=== PATIENT | female | born 1995 | race Caucasian/White ===

== ENCOUNTER 2016-11-23 18:25 | Emergency (ER) | payer MEDICAID ==
[~2016-11-23] VITALS: Ht 154.9 cm; Wt 61.5 kg
[2016-11-23 18:26] VITALS: BP 112/68; PULSE 113; RESP 16; TEMP 98.2; O2SAT 98
[2016-11-23] MEDS ORDERED: PREN29TA PO (19:04)
--- NOTE | 2016-11-23 19:11 | PD ---
HPI Chief Complaint: GI Complaint Time Seen by Provider: 19:07 Travel History International Travel<30 days: No Contact w/Intl Traveler<30days: No Traveled to known affect area: No History of Present Illness HPI Patient comes in complaining of constipation ongoing for approximately a month. Patient states she is approximately 25 weeks and had similar issues with her previous . Patient is A0. Patient reports she began having nausea and vomiting yesterday approximately 3 episodes of vomiting. Patient reports vomiting is nonbilious and nonbloody. Denies any blood in stool. Denies any chest pain, fevers, shortness of breath, or headaches. Patient tried [id number] MiraLAX with minimal improvement of symptoms. Patient complaining of cramping pain and pressure in her abdomen. Patient reports she continues to feel movement. PFSH Past Medical History Gastrointestinal Disorders: Yes (frequent constipation w/ unknown cause) ?: LMP: 06/01/16 Social History Alcohol Use: No Tobacco Use: No Substance Use: No Allergies-Medications (Allergen,Severity, Reaction): Coded Allergies: No Known Allergies (Unverified , 11/23/16) Reported Meds & Prescriptions Reported Meds & Active Scripts Active Keflex (Cephalexin) 500 Mg Cap 500 Mg PO Q8H Zofran Odt (Ondansetron Odt) 4 Mg Tab 4 Mg SL Q6HR PRN Reported Plus Iron 29-1 mg ( Vit-Iron Carbonyl) 1 Tab Tab 1 Tab PO DAILY Review of Systems Except as stated in HPI: all other systems reviewed are Neg Physical Exam Narrative GENERAL: Well-developed, well nourished, in no acute distress, and non-ill appearing. SKIN: Focused skin assessment warm and dry. HEAD: Atraumatic. Normocephalic. EYES: Pupils equal and round. EOMI. No scleral icterus. No injection or drainage. ENT: No nasal bleeding or discharge. Mucous membranes pink and moist. NECK: Trachea midline. No JVD. Supple. No nuclear rigidity. CARDIOVASCULAR: Regular rate and rhythm. No murmur appreciated. RESPIRATORY: No accessory muscle use. No respiratory distress. Clear to auscultation. Breath sounds equal bilaterally. GASTROINTESTINAL: Gravid uterus, minimal tenderness left lower quadrant, abdomen soft. Hepatic and splenic margins not palpable. Normal bowel sounds 4. No pulsatile mass. No guarding. MUSCULOSKELETAL: No obvious deformities. No clubbing. No cyanosis. No edema. Full range of motion. NEUROLOGICAL: Awake and alert. No obvious cranial nerve deficits. Motor grossly within normal limits. Normal speech. PSYCHIATRIC: Appropriate mood and affect; insight and judgment normal. Data Data Last Documented VS Vital Signs Date Time Temp Pulse Resp B/P Pulse Ox O2 Delivery O2 Flow Rate FiO2 11/23/16 19:59 85 18 121/77 99 Room Air 11/23/16 18:26 98.2 Orders Urinalysis - C+S If Indicated (11/23/16 19:03) Ecg Monitoring (11/23/16 19:03) Oximetry (11/23/16 19:03) Sodium Chloride 0.9% Flush (Ns Flush) (11/23/16 19:15) ^ Straight Catheter (11/23/16 19:03) Mineral Oil Enema (Fleet Mineral Oil Jaimie (11/23/16 19:15) Ondansetron Odt (Zofran Odt) (11/23/16 19:15) Heart Tones (11/23/16 19:03) Acetaminophen (Tylenol) (11/23/16 19:45) Urine Culture (11/23/16 19:20) Fleets Enema (Adult) (Fleets Enema (Adul (11/23/16 20:45) Labs Laboratory Tests Test 11/23/16 19:20 Urine Color YELLOW Urine Turbidity HAZY Urine pH 6.0 Urine Specific [place] 1.021 Urine Protein TRACE mg/dL Urine Glucose (UA) NEG mg/dL Urine Ketones 150 mg/dL Urine Occult Blood MOD Urine Nitrite POS Urine Bilirubin NEG Urine Urobilinogen 2.0 MG/DL Urine Leukocyte Esterase SMALL Urine RBC 26 /hpf Urine WBC 10 /hpf Urine Bacteria MANY /hpf Urine Hyaline Casts 1 /lpf Urine Mucus MOD /lpf Microscopic Urinalysis Comment CULTURE INDICATED MDM Medical Decision Making Medical Screen Exam Complete: Yes Emergency Medical Condition: Yes Differential Diagnosis Constipation, UTI, febrile infection, other Narrative Course Patient in no obvious distress upon re-evaluation. After patient had a mineral oil enema followed by fleets enema patient had a large successful bowel movement with improvement of her symptoms. All pertinent laboratory result(s) discussed with patient. Discussed patient with Dr. Alvares, who saw and evaluated the patient and is in agreement with plan of care and disposition. Any questions/concerns in reference to patient diagnosis/condition discussed and clarified prior to patient's discharge. Reinforced sheer importance of close follow up with patient's primary physician or primary care clinic. Instructed patient to return to ED immediately, if symptoms return/worsen. Pt showed understanding of above instructions. Further instructions and recommendations were detailed in discharge paperwork. Pt ambulated without difficulty out of ED at discharge. Diagnosis Primary Impression: Constipation during Qualified Code: O99.619 - Constipation during , unspecified trimester Additional Impression: UTI (urinary tract infection) during Qualified Code: O23.40 - UTI (urinary tract infection) during , unspecified trimester Patient Instructions: Constipation (ED), General Instructions, Urinary Tract Infection in Women (ED) Additional Instructions: Follow-up with your stage driver this week for reevaluation. Take all medication as prescribed. Drink plenty of non-caffeinated and nonalcoholic fluids. Eat prunes regularly to help promote bowel movements. Use [id number] MiraLAX as needed for constipation. Follow instructions on the packaging. Return to the emergency department if symptoms get worse. Med/Other Pt SpecificInfo: Prescription(s) given Scripts Cephalexin (Keflex)500 Mg [id number] Mg PO Q8H #30 CAP Ref 0 Prov:Margarita De MD 11/23/16 Ondansetron Odt (Zofran Odt)4 Mg Tab4 Mg SL Q6HR PRN (Nausea/Vomiting) #12 TAB Ref 0 Prov:Margarita De MD 11/23/16 Disposition: 01 DISCHARGE HOME Condition: Stable Benitez Rosales November 23, 2016 19:11
[2016-11-23] MEDS ORDERED: MINERAL OIL ENEMA 118 ML BTL RECTAL ONE (19:15)
[2016-11-23] MEDS ORDERED: ONDANSETRON ODT 4 MG TAB PO ONE (19:15)
[2016-11-23] MEDS ORDERED: SODIUM CHLORIDE 0.9% FLUSH 10 ML FLUSH IV FLUSH PRN (19:15)
[2016-11-23 19:31] VITALS: O2SAT 98
[2016-11-23] MEDS ORDERED: ACETAMINOPHEN 500 MG CPLT PO ONE (19:45)
[2016-11-23 19:50] LABS: BACTERIA, URINE MANY /hpf; BLOOD, URINE MOD (NEG); COMMENT (UR) CULTURE INDICATED; CULTURE IF INDICATED CULTURE INDICATED; GLUCOSE,URINE NEG (NEG); HYALINE CAST, URINE 1 /lpf (RARE); KETONE, URINE 150 mg/dL (NEG); MUCUS URINE MOD /lpf (OCC); URINE COLOR YELLOW (YELLW/STRAW)
[2016-11-23 19:51] VITALS: PULSE 118
[2016-11-23 19:51] LABS: NITRITE,URINE POS (NEG)
[2016-11-23 19:59] VITALS: BP 121/77; PULSE 85; RESP 18; O2SAT 99
[2016-11-23] MEDS ORDERED: SOD PHOSPHATE/SOD BIPHOSPHATE (ADULT) ENEMA 133ML RECTAL ONE (20:45)
--- NOTE | 2016-11-23 21:00 | PD ---
Data Data Last Documented VS Vital Signs Date Time Temp Pulse Resp B/P Pulse Ox O2 Delivery O2 Flow Rate FiO2 11/23/16 19:59 85 18 121/77 99 Room Air 11/23/16 18:26 98.2 Orders Urinalysis - C+S If Indicated (11/23/16 19:03) Ecg Monitoring (11/23/16 19:03) Oximetry (11/23/16 19:03) Sodium Chloride 0.9% Flush (Ns Flush) (11/23/16 19:15) ^ Straight Catheter (11/23/16 19:03) Mineral Oil Enema (Fleet Mineral Oil Jaimie (11/23/16 19:15) Ondansetron Odt (Zofran Odt) (11/23/16 19:15) Heart Tones (11/23/16 19:03) Acetaminophen (Tylenol) (11/23/16 19:45) Urine Culture (11/23/16 19:20) Fleets Enema (Adult) (Fleets Enema (Adul (11/23/16 20:45) Labs Laboratory Tests Test 11/23/16 19:20 Urine Color YELLOW Urine Turbidity HAZY Urine pH 6.0 Urine Specific [place] 1.021 Urine Protein TRACE mg/dL Urine Glucose (UA) NEG mg/dL Urine Ketones 150 mg/dL Urine Occult Blood MOD Urine Nitrite POS Urine Bilirubin NEG Urine Urobilinogen 2.0 MG/DL Urine Leukocyte Esterase SMALL Urine RBC 26 /hpf Urine WBC 10 /hpf Urine Bacteria MANY /hpf Urine Hyaline Casts 1 /lpf Urine Mucus MOD /lpf Microscopic Urinalysis Comment CULTURE INDICATED MDM Supervised Visit with DANIEL: Yes Narrative Course I, Dr. De, have reviewed the advance practice practioner's documentation and am in agreement, met with the patient face to face, made the diagnosis, and the medical decision making was done by me. *My assessment and Findings: 20-year-old female approximate 25 weeks' gestational age here with complaint of constipation 3 weeks with some associated nausea and vomiting. She is still passing flatus. She's having some scant small bowel movements. Patient complains of pain and fullness in the rectum. Her abdominal examination is benign but on rectal examination patient has large amount of stool within the rectal vault. I unfortunately was unable to digitally disimpact her. Patient has a benign abdominal examination and my suspicion for obstruction is exceedingly low. She's had a history of severe constipation with previous . Patient was given an enema, and with BM will be discharged home with bowel regimen. Margarita De MD November 23, 2016 21:00
[2016-11-23] MEDS ORDERED: ZOFR4TAB3 SL (21:21)
[2016-11-23] MEDS ORDERED: CEPH-460 PO (21:21)
== END 2016-11-23 21:45 | disposition home or self-care (01) ==
LOC: NEPE 18:25
DX: O99.612 Diseases of the digestive system complicating pregnancy, second trimester (principal); O23.42 Unspecified infection of urinary tract in pregnancy, second trimester; O21.9 Vomiting of pregnancy, unspecified; R11.2 Nausea with vomiting, unspecified; B96.20 Unspecified Escherichia coli [E. coli] as the cause of diseases classified elsewhere; Z3A.25 25 weeks gestation of pregnancy
CPT/HCPCS: 81001; 87077; 87086; 87186; 99284; P9612

== ENCOUNTER 2017-06-08 13:04 | Emergency (ER) | payer MEDICAID ==
[~2017-06-08] VITALS: Ht 154.9 cm; Wt 61.5 kg
[~2017-06-08 13:04] MED LIST: CEPH-460 PO; PREN29TA PO; ZOFR4TAB3 SL
[2017-06-08 13:06] VITALS: BP 119/74; PULSE 91; RESP 16; TEMP 98.7; O2SAT 98
--- NOTE | 2017-06-08 14:01 | PD ---
HPI Chief Complaint: Complaint Time Seen by Provider: 13:52 Travel History International Travel<30 days: No Contact w/Intl Traveler<30days: No Traveled to known affect area: No History of Present Illness HPI The patient was seen and examined in the presence of the nurse. This patient complains of dysuria and urinary frequency. She denies fever or flank pain or injury. Symptoms severity is mild to moderate. Duration 2 days. PFSH Past Medical History Medical History: Denies Significant Hx Gastrointestinal Disorders: Yes (frequent constipation w/ unknown cause) Tetanus Vaccination: Unknown Influenza Vaccination: No ?: LMP: 04/07/17 Past Surgical History Section: Yes Social History Alcohol Use: No Tobacco Use: No Substance Use: No Allergies-Medications (Allergen,Severity, Reaction): Coded Allergies: No Known Allergies (Unverified Adverse Reaction, Unknown, 06/08/17) Reported Meds & Prescriptions Reported Meds & Active Scripts Active Macrobid (Nitrofurantoin Monohydrate Macrocrystals) 100 Mg Capsule 100 Mg PO BID Keflex (Cephalexin) 500 Mg Cap 500 Mg PO Q8H Zofran Odt (Ondansetron Odt) 4 Mg Tab 4 Mg SL Q6HR PRN Reported Plus Iron 29-1 mg ( Vit-Iron Carbonyl) 1 Tab Tab 1 Tab PO DAILY Review of Systems General / Constitutional: No: Fever HENT: No: Headaches Cardiovascular: No: Chest Pain or Discomfort Physical Exam Narrative SKIN: Focused skin assessment reveals no rash or ulcers. Skin is warm and dry. Palpation shows no induration or nodules. GASTROINTESTINAL: Abdomen soft, non-tender, nondistended. Positive bowel sounds. No hepato-splenomegaly, or palpable masses. No guarding. Back: No midline or CVA tenderness Data Data Last Documented VS Vital Signs Date Time Temp Pulse Resp B/P (MAP) Pulse Ox O2 Delivery O2 Flow Rate FiO2 06/08/17 13:38 18 06/08/17 13:06 98.7 91 119/74 (89) 98 Orders Orders Urinalysis - C+S If Indicated (06/08/17 13:56) Urine Culture (06/08/17 14:20) Labs Laboratory Tests Test 06/08/17 14:20 Urine Color YELLOW Urine Turbidity HAZY Urine pH 7.0 Urine Specific [place] 1.023 Urine Protein TRACE mg/dL Urine Glucose (UA) NEG mg/dL Urine Ketones NEG mg/dL Urine Occult Blood NEG Urine Nitrite NEG Urine Bilirubin NEG Urine Urobilinogen 2.0 MG/DL Urine Leukocyte Esterase MOD Urine RBC 2 /hpf Urine WBC 11 /hpf Urine Squamous Epithelial Cells 4 /hpf Urine Transitional Epithelial Cells <1 /hpf Urine Bacteria RARE /hpf Urine Mucus MANY /lpf Microscopic Urinalysis Comment CULTURE INDICATED MDM Medical Decision Making Medical Screen Exam Complete: Yes Emergency Medical Condition: Yes Medical Record Reviewed: Yes Differential Diagnosis Cystitis, pyelonephritis, UTI Narrative Course I have reviewed the patient's electronic medical record. Urinalysis shows some minor findings consistent with infection will be cultured. Macrobid prescribed Diagnosis Primary Impression: Cystitis Additional Instructions: The patient was advised to follow up with their physician and return if they worsen. Med/Other Pt SpecificInfo: Prescription(s) given Scripts Nitrofurantoin Monohydrate Macrocrystals (Macrobid) 100 Mg Capsule 100 MG PO BID for Infection, #10 CAP 0 Refills Prov: Jm Cespedes MD 06/08/17 Disposition: DISCHARGE HOME Condition: Stable Jm Cespedes MD Jun 08, 2017 14:01
[2017-06-08 14:31] LABS: BACTERIA, URINE RARE /hpf; BLOOD, URINE NEG (NEG); GLUCOSE,URINE NEG (NEG); KETONE, URINE NEG (NEG); MUCUS URINE MANY /lpf (OCC); NITRITE,URINE NEG (NEG); SQUAMOUS EPITHELIAL CELL URINE 4 /hpf (0-5); TRANSITIONAL EPI CELLS, URINE <1 /hpf; URINE COLOR YELLOW (YELLW/STRAW)
[2017-06-08 14:33] LABS: COMMENT (UR) CULTURE INDICATED; CULTURE IF INDICATED CULTURE INDICATED
[2017-06-08] MEDS ORDERED: MACR100C2 PO (16:13)
== END 2017-06-08 16:48 | disposition home or self-care (01) ==
LOC: NEPD 13:04
DX: N30.90 Cystitis, unspecified without hematuria (principal); B95.7 Other staphylococcus as the cause of diseases classified elsewhere; Z79.899 Other long term (current) drug therapy
CPT/HCPCS: 81001; 86403; 87077; 87086; 87186; 99283

== ENCOUNTER 2017-08-30 11:51 | Emergency (ER) | payer MEDICAID ==
[~2017-08-30] VITALS: Ht 154.9 cm; Wt 60.0 kg
[~2017-08-30 11:51] MED LIST changes: +MACR100C2 PO
[2017-08-30 11:54] VITALS: BP 112/60; PULSE 125; RESP 16; TEMP 99; O2SAT 97
--- NOTE | 2017-08-30 12:43 | PD ---
HPI Chief Complaint: Cold / Flu Symptoms Time Seen by Provider: 12:39 Travel History International Travel<30 days: No Contact w/Intl Traveler<30days: No Traveled to known affect area: No History of Present Illness HPI Patient has had 2 day history of nonproductive cough, sore throat, some runny nose as well as body aches. Patient is to about 22 weeks and is concerned about it so she came here to be evaluated. However patient was sent from OB to the ER for clearance. Patient denies any alleviating or aggravating factors. Patient also denies any associated factors such as fever headache chest pain nausea vomiting rash or diarrhea. No known drug allergies No significant past medical history Past surgical history significant for only PFSH Past Medical History Gastrointestinal Disorders: Yes (frequent constipation w/ unknown cause) ?: LMP: 04/07/18 Past Surgical History Section: Yes Social History Alcohol Use: No Tobacco Use: No Substance Use: No Allergies-Medications (Allergen,Severity, Reaction): Coded Allergies: No Known Allergies (Unverified Adverse Reaction, Unknown, 08/30/17) Reported Meds & Prescriptions Reported Meds & Active Scripts Active Macrobid (Nitrofurantoin Monohydrate Macrocrystals) 100 Mg Capsule 100 Mg PO BID Keflex (Cephalexin) 500 Mg Cap 500 Mg PO Q8H Zofran Odt (Ondansetron Odt) 4 Mg Tab 4 Mg SL Q6HR PRN Reported Plus Iron 29-1 mg ( Vit-Iron Carbonyl) 1 Tab Tab 1 Tab PO DAILY Review of Systems General / Constitutional: No: Fever Eyes: No: Visual changes HENT: Positive: Sore Throat Cardiovascular: No: Chest Pain or Discomfort Respiratory: No: Shortness of Breath Gastrointestinal: No: Abdominal Pain Genitourinary: No: Dysuria Musculoskeletal: No: Pain Skin: No Rash Neurologic: No: Weakness Psychiatric: No: Depression Endocrine: No: Polydipsia Hematologic/Lymphatic: No: Easy Bruising Physical Exam Narrative GENERAL: SKIN: Warm and dry. HEAD: Atraumatic. Normocephalic. EYES: Pupils equal and round. No scleral icterus. No injection or drainage. ENT: No nasal bleeding or discharge. Mucous membranes pink and moist. NECK: Trachea midline. No JVD. CARDIOVASCULAR: Regular rate and rhythm. RESPIRATORY: No accessory muscle use. Clear to auscultation. Breath sounds equal bilaterally. GASTROINTESTINAL: Abdomen soft, non-tender, nondistended. Patient has a gravid abdomen consistent with about 20+ weeks. MUSCULOSKELETAL: Extremities without clubbing, cyanosis, or edema. No obvious deformities. NEUROLOGICAL: Awake and alert. No obvious cranial nerve deficits. Motor grossly within normal limits. Five out of 5 muscle strength in the arms and legs. Normal speech. PSYCHIATRIC: Appropriate mood and affect; insight and judgment normal. Data Data Last Documented VS Vital Signs Date Time Temp Pulse Resp B/P (MAP) Pulse Ox O2 Delivery O2 Flow Rate FiO2 08/30/17 13:44 112 20 99/50 (66) 97 Room Air 08/30/17 11:54 99.0 Orders Orders Group A Rapid Strep Screen (08/30/17 12:26) Influenzae A/B Antigen (08/30/17 12:26) Chest, Single Ap (08/30/17 12:26) Strep Culture (Group A) (08/30/17 12:30) MDM Medical Decision Making Medical Screen Exam Complete: Yes Emergency Medical Condition: Yes Medical Record Reviewed: Yes Differential Diagnosis FLU V STREP V PNA Narrative Course Patient's chest x-ray does not show any evidence of pneumonia pleural effusion. Patient's strep test is negative however the patient's flu test is positive. Diagnosis Primary Impression: FLU IN Patient Instructions: General Instructions, Influenza (DC) Scripts Ondansetron Odt (Zofran Odt) 4 Mg Tab 4 MG SL Q6HR Y for Nausea/Vomiting, #6 TAB 0 Refills Prov: Zachary Brunner MD 08/30/17 Oseltamivir (Tamiflu) 75 Mg Cap 75 MG PO BID for Mgmt Viral Infection for 5 Days, #10 CAP 0 Refills Prov: Zachary Brunner MD 08/30/17 Disposition: 01 DISCHARGE HOME Condition: Stable Zachary Brunner MD Aug 30, 2017 12:43
--- NOTE | 2017-08-30 13:19 | RADRPT ---
EXAM DATE/TIME: 08/30/2017 13:01 [facility] COMPARISON: No previous studies available for comparison. INDICATIONS : Cough MEDICAL HISTORY : None. SURGICAL HISTORY : None. ENCOUNTER: Initial ACUITY: 1 day PAIN SCORE: 0/10 LOCATION: chest FINDINGS: A single view of the chest demonstrates the lungs to be symmetrically aerated without evidence of mas s, infiltrate or effusion. The cardiomediastinal contours are unremarkable. Osseous structures are intact. CONCLUSION: The lungs are clear. Alex Mclain MD on August 30, 2017 at 13:18 Board Certified Radiologist. This report was verified electronically.
[2017-08-30 13:44] VITALS: BP 99/50; PULSE 112; RESP 20; O2SAT 97
[2017-08-30] MEDS ORDERED: ZOFR4TAB3 SL (13:57)
[2017-08-30] MEDS ORDERED: OSEL75 PO (13:57)
[2017-08-30] MEDS ORDERED: OSELTAMIVIR PHOSPHATE 75 MG CAP PO ONE (14:00)
[2017-08-30] MEDS ORDERED: KETOROLAC TROMETHAMINE 10 MG TAB PO ONE (14:00)
[2017-08-30 14:43] VITALS: BP 102/60
== END 2017-08-30 14:43 | disposition home or self-care (01) ==
LOC: NEPE 11:51
DX: O99.512 Diseases of the respiratory system complicating pregnancy, second trimester (principal); J11.1 Influenza due to unidentified influenza virus with other respiratory manifestations; Z3A.22 22 weeks gestation of pregnancy
CPT/HCPCS: 71045; 87081; 87804; 87880; 99284

== ENCOUNTER 2017-09-10 11:22 | Emergency (ER) | payer MEDICAID ==
[~2017-09-10 11:22] MED LIST changes: +OSEL75 PO
--- NOTE | 2017-09-10 12:52 | PD ---
HPI Chief Complaint nausea, backpain, lightheadedness Date Seen: Sep 10, 2017 Time Seen: 12:45 Travel History International Travel<30 Days: No Contact w/Intl Traveler<30Days: No Known Affected Area: No History of Present Illness HPI 21y/o @ 22.3wks. She has PNC with Dr. Mckeon. She presents today with multiple c/o including nausea, back pain, leaking urine when she coughs, recent flu infection, and lightheadedness. She states that she has not eaten much due to nausea. No LOF, VB, or ctx. +FM. Weeks Gestation: 22 Para: 2 : 3 History Past Medical History Medical History: Denies Significant Hx Obstetric History Obstetric History x1 CS x1 Past Surgical History Narrative Surgical CSx1 Family History Family History: Negative Social History Alcohol Use: No Tobacco Use: No Substance Abuse: No Allergies-Medications (Allergen,Severity, Reaction): Coded Allergies: No Known Allergies (Unverified Adverse Reaction, Unknown, 08/30/17) Home Meds Active Scripts Ondansetron Odt (Zofran Odt) 4 Mg Tab, 4 MG SL Q6HR Y for Nausea/Vomiting, #6 TAB 0 Refills Prov:Zachary Brunner MD 08/30/17 Oseltamivir (Tamiflu) 75 Mg Cap, 75 MG PO BID for Mgmt Viral Infection for 5 Days, #10 CAP 0 Refills Prov:Zachary Brunner MD 08/30/17 Nitrofurantoin Monohydrate Macrocrystals (Macrobid) 100 Mg Capsule, 100 MG PO BID for Infection, #10 CAP 0 Refills Prov:Jm Cespedes MD 06/08/17 Cephalexin (Keflex) 500 Mg Cap, 500 MG PO Q8H for Infection, #30 CAP 0 Refills Prov:Margarita De MD 11/23/16 Ondansetron Odt (Zofran Odt) 4 Mg Tab, 4 MG SL Q6HR Y for Nausea/Vomiting, #12 TAB 0 Refills Prov:Margarita De MD 11/23/16 Reported Medications Vit-Iron Carbonyl ( Plus Iron 29-1 mg) 1 Tab Tab, 1 TAB PO DAILY for Nutritional Supplement, #30 TAB 0 Refills 11/23/16 Review of Systems Except as stated in HPI: all other systems reviewed are Neg Physical Exam Narrative General: well developed, well nourished, no acute distress HEENT: normocephalic atraumatic, extraocular movements intact, neck supple Abdomen: soft, gravid, nontender, nondistended Uterus: fundus at umbilicus Extremities: full range of motion Skin: normal coloration, no rashes, no suspicious skin lesions noted Neurologic: cranial nerves 2-12 grossly intact, normal muscle tone, normal gait Psychiatric: normal mood and affect, appropriate FHTs: present [place]: quiet Cvx: deferred Data Data Vital Signs Reviewed: Yes Orders Orders Vital Signs (Adult) .ON ADMISSION (09/10/17 12:44) Heart (09/10/17 12:44) Urinalysis - C+S If Indicated (09/10/17 12:44) MDM Plan 21y/o @ 22.3wks with nausea, lightheadedness, and back pain. -- UA negative for UTI -- recent flu, possible inner ear fluid, advised on claritin -- lightheadedness make be related to lack of PO intake 2' to nausea -- no emesis, advised on small, frequent meals -- no OB complaints Dispo: stable for d/c home, has f/u in clinic on Thursday Diagnosis Diagnosis: Primary Impression: 22 weeks gestation of Additional Impressions: Nausea Lightheaded Francesca Garcia MD Sep 10, 2017 12:52
== END 2017-09-10 13:35 | disposition home or self-care (01) ==
LOC: HOBED 11:22
DX: O26.892 Other specified pregnancy related conditions, second trimester (principal); R42 Dizziness and giddiness; R11.0 Nausea; Z3A.22 22 weeks gestation of pregnancy
CPT/HCPCS: 99281

== ENCOUNTER 2017-10-16 15:26 | Emergency (ER) | payer MEDICAID ==
[~2017-10-16] VITALS: Ht 154.9 cm; Wt 68.0 kg
--- NOTE | 2017-10-16 16:22 | PD ---
HPI Chief Complaint Contractions Date Seen: Oct 16, 2017 Time Seen: 16:13 Travel History International Travel<30 Days: No Contact w/Intl Traveler<30Days: No Known Affected Area: No History of Present Illness HPI The patient reports mild menstrual type cramps since 8 AM. They're lasting just a few seconds. She denies any leakage of fluid, bleeding or mucousy discharge. She has had good movement. History Past Medical History Medical History: Denies Significant Hx Obstetric History Obstetric History One prior term vaginal delivery, one prior 35 week for distress Her current is under the care of Dr. May and has been uncomplicated. Past Surgical History Narrative Surgical Family History Family History: Negative Social History Alcohol Use: No Tobacco Use: No Substance Abuse: No Allergies-Medications (Allergen,Severity, Reaction): Coded Allergies: No Known Allergies (Unverified Adverse Reaction, Unknown, 08/30/17) Home Meds Active Scripts Ondansetron Odt (Zofran Odt) 4 Mg Tab, 4 MG SL Q6HR Y for Nausea/Vomiting, #6 TAB 0 Refills Prov:Zachary Brunner MD 08/30/17 Oseltamivir (Tamiflu) 75 Mg Cap, 75 MG PO BID for Mgmt Viral Infection for 5 Days, #10 CAP 0 Refills Prov:Zachary Brunner MD 08/30/17 Nitrofurantoin Monohydrate Macrocrystals (Macrobid) 100 Mg Capsule, 100 MG PO BID for Infection, #10 CAP 0 Refills Prov:Jm Cespedes MD 06/08/17 Cephalexin (Keflex) 500 Mg Cap, 500 MG PO Q8H for Infection, #30 CAP 0 Refills Prov:Margarita De MD 11/23/16 Ondansetron Odt (Zofran Odt) 4 Mg Tab, 4 MG SL Q6HR Y for Nausea/Vomiting, #12 TAB 0 Refills Prov:Margarita De MD 11/23/16 Reported Medications Vit-Iron Carbonyl ( Plus Iron 29-1 mg) 1 Tab Tab, 1 TAB PO DAILY for Nutritional Supplement, #30 TAB 0 Refills 11/23/16 Review of Systems Except as stated in HPI: all other systems reviewed are Neg Physical Exam Narrative GENERAL: Well-nourished, well-developed patient. SKIN: Warm and dry. HEAD: Normocephalic and atraumatic. EYES: No scleral icterus. No injection or drainage. ENT: No nasal drainage noted. Mucous membranes pink. Airway patent. NECK: Supple, trachea midline. No JVD. ABDOMEN/GI: Abdomen soft, non-tender, bowel sounds present, no rebound, no guarding Gravid to [-] weeks size Fundal Height: [-] GENITOURINARY: External Genitalia: intact and normal in appearance BUS glands: [Negative-] Cervix: [-] Dilatation: [Closed-] Effacement: [-Long] Station: [-High] Presentation: [-] Membranes: [intact ] Uterine Contractions: [No-] FHT's: Category: [1-] Baseline: [-] Reactive: [-] Variability: [-] Decels: [-] EXTREMITIES: No cyanosis or edema. BACK: Nontender without obvious deformity. No CVA tenderness. NEUROLOGICAL: Awake and alert. Motor and sensory grossly within normal limits. Five out of 5 muscle strength in all muscle groups. Normal speech. Data Data Vital Signs Reviewed: Yes MDM Medical Record Reviewed: Yes Narrative Course / MDM Assessment: 21-year-old multipara at 27 and 3 days gestation with [place]. Plan: Recommend increased hydration. Labor precautions were reviewed. Diagnosis Diagnosis: Primary Impression: 27 weeks gestation of Additional Impression: [place] Schneider' contraction Disposition: 01 DISCHARGE HOME Condition: Good Pablo Steve MD Oct 16, 2017 16:21
== END 2017-10-16 16:35 | disposition home or self-care (01) ==
LOC: HOBED 15:26
DX: O47.9 False labor, unspecified (principal); Z3A.27 27 weeks gestation of pregnancy
CPT/HCPCS: 99284

== ENCOUNTER 2017-11-14 22:08 | Emergency (ER) | payer MEDICAID ==
[~2017-11-14 22:08] MED LIST changes: -CEPH-460 PO; -MACR100C2 PO; -OSEL75 PO; -ZOFR4TAB3 SL
--- NOTE | 2017-11-14 22:36 | PD ---
HPI Chief Complaint Something coming out of my vagina Date Seen: November 14, 2017 Time Seen: 22:28 Travel History International Travel<30 Days: No Contact w/Intl Traveler<30Days: No Known Affected Area: No History of Present Illness HPI 21-year-old 3 para 2 at 32 weeks gestation who came in tonight by ambulance after noticing something protruding from the vagina. Patient states she was trying to evacuate her bowel and after prolonged time of being on the commode she went to the shower to try to complete the process and at that time noticed some tissue protruding from her vagina. She denies any bleeding, leakage of fluid. She reports good movement. The patient is troubled by chronic constipation which is worsened during her . She states she will frequently go 2 weeks without a bowel movement. She has not been using any stool softener or bowel agents. History Past Medical History Narrative Medical Chronic constipation Obstetric History Obstetric History 1 prior vaginal delivery 1 prior . Her record shows that she is also had a miscarriage but she says this is not true. Past Surgical History Narrative Surgical Family History Family History: Negative Social History Alcohol Use: No Tobacco Use: No Substance Abuse: No Allergies-Medications (Allergen,Severity, Reaction): Coded Allergies: No Known Allergies (Unverified Adverse Reaction, Unknown, 08/30/17) Home Meds Reported Medications Vit-Iron Carbonyl ( Plus Iron 29-1 mg) 1 Tab Tab, 1 TAB PO DAILY for Nutritional Supplement, #30 TAB 0 Refills 11/23/16 Review of Systems Except as stated in HPI: all other systems reviewed are Neg Physical Exam Narrative GENERAL: Well-nourished, well-developed patient. She has tried stool covering a large part of her lower extremities. SKIN: Warm and dry. HEAD: Normocephalic and atraumatic. EYES: No scleral icterus. No injection or drainage. ENT: No nasal drainage noted. Mucous membranes pink. Airway patent. NECK: Supple, trachea midline. No JVD. CARDIOVASCULAR: Regular rate and rhythm without murmurs, gallops, or rubs. RESPIRATORY: Breath sounds equal bilaterally. No accessory muscle use. BREASTS: Bilateral exam showed no masses , no retractions, no nipple discharge. ABDOMEN/GI: Abdomen soft, non-tender, bowel sounds present, no rebound, no guarding Gravid to [-] weeks size Fundal Height: [-] GENITOURINARY: External Genitalia: intact and normal in appearance BUS glands: [-The protrusion from the vagina is a swollen hymeneal remnant, the posterior vagina is pushed significantly anterior from a large stool complex in the rectum.] Cervix: [-] Dilatation: [Closed-] Effacement: [-Long] Station: [High-] Presentation: [-] Membranes: [intact] Uterine Contractions: [none-] FHT's: Category: [-1] Baseline: [-] Reactive: [-y] Variability: [-] Decels: [-] EXTREMITIES: No cyanosis or edema. BACK: Nontender without obvious deformity. No CVA tenderness. NEUROLOGICAL: Awake and alert. Motor and sensory grossly within normal limits. Five out of 5 muscle strength in all muscle groups. Normal speech. Data Data Vital Signs Reviewed: Yes MDM Medical Record Reviewed: Yes Narrative Course / MDM Assessment: Chronic constipation with vaginal wall prolapse Plan: We reviewed different bowel regimens and recommended stool softener, increase fluid and follow-up with her primary provider Dr. May. Diagnosis Diagnosis: Primary Impression: 32 weeks gestation of Additional Impression: Constipation during Disposition: 01 DISCHARGE HOME Condition: Good Pablo Steve MD November 14, 2017 22:36
== END 2017-11-14 23:13 | disposition home or self-care (01) ==
LOC: HOBED 22:08
DX: O26.893 Other specified pregnancy related conditions, third trimester (principal); K59.00 Constipation, unspecified; Z3A.32 32 weeks gestation of pregnancy
CPT/HCPCS: 99284

== ENCOUNTER 2017-12-11 18:00 | Emergency (ER) | payer MEDICAID ==
--- NOTE | 2017-12-11 19:11 | PD ---
HPI Chief Complaint Constipation Date Seen: Dec 11, 2017 Time Seen: 19:05 Travel History International Travel<30 Days: No Contact w/Intl Traveler<30Days: No Known Affected Area: No History of Present Illness HPI 22-year-old 2 para 135 weeks gestation who comes with complaint of constipation. The patient has experienced this before and has been seen before for this complaint. She reports having used multiple modalities without success over the past 3 weeks. She continues on her iron at this time and has not been adherent to the dietary restrictions suggested. She denies any obstetrical complaints. History Past Medical History Narrative Medical Chronic constipation Obstetric History Obstetric History 1 prior section, closely spaced pregnancies Past Surgical History Narrative Surgical Family History Family History: Negative Social History Alcohol Use: No Tobacco Use: No Substance Abuse: No Allergies-Medications (Allergen,Severity, Reaction): Coded Allergies: No Known Allergies (Unverified Adverse Reaction, Unknown, 08/30/17) Home Meds Reported Medications Vit-Iron Carbonyl ( Plus Iron 29-1 mg) 1 Tab Tab, 1 TAB PO DAILY for Nutritional Supplement, #30 TAB 0 Refills 11/23/16 Review of Systems Except as stated in HPI: all other systems reviewed are Neg Physical Exam Narrative GENERAL: Well-nourished, well-developed patient. SKIN: Warm and dry. HEAD: Normocephalic and atraumatic. EYES: No scleral icterus. No injection or drainage. ENT: No nasal drainage noted. Mucous membranes pink. Airway patent. NECK: Supple, trachea midline. No JVD. ABDOMEN/GI: Abdomen soft, non-tender, bowel sounds present, no rebound, no guarding Gravid to [-] weeks size Fundal Height: [-] GENITOURINARY: External Genitalia: intact and normal in appearance BUS glands: [-] Cervix: [-] Dilatation: [-] Effacement: [-] Station: [-] Presentation: [-] Membranes: [intact or ruptured] Uterine Contractions: [-] FHT's: Category: [-] Baseline: [-] Reactive: [Yes-] Variability: [-] Decels: [-] EXTREMITIES: No cyanosis or edema. BACK: Nontender without obvious deformity. No CVA tenderness. NEUROLOGICAL: Awake and alert. Motor and sensory grossly within normal limits. Five out of 5 muscle strength in all muscle groups. Normal speech. Data Data Vital Signs Reviewed: Yes MDM Medical Record Reviewed: Yes Narrative Course / MDM Assessment: Constipation in the third trimester Plan: Additional instructions regarding bowel regimens were reviewed with the patient. Diagnosis Diagnosis: Primary Impression: 35 weeks gestation of Additional Impression: Constipation during Disposition: 01 DISCHARGE HOME Condition: Good Pablo Steve MD Dec 11, 2017 19:11
== END 2017-12-11 19:17 | disposition home or self-care (01) ==
LOC: HOBED 18:00
DX: O26.893 Other specified pregnancy related conditions, third trimester (principal); K59.00 Constipation, unspecified; Z3A.35 35 weeks gestation of pregnancy
CPT/HCPCS: 59025

== ENCOUNTER 2017-12-20 23:54 | Emergency (ER) | payer MEDICAID ==
[2017-12-21] MEDS ORDERED: DEXTROSE 5%-LACTATED RING INJ 1,000 ML IV ONE (00:30)
[2017-12-21 00:41] VITALS: BP 91/50; PULSE 117
[2017-12-21] MEDS ORDERED: PROM25TA10 PO (00:41)
[2017-12-21] MEDS ORDERED: PROM1SUP7 RECTAL (00:42)
--- NOTE | 2017-12-21 00:42 | PD ---
HPI Chief Complaint Contractions with nausea and vomiting when she has a contraction Date Seen: Dec 21, 2017 Time Seen: 00:32 Travel History International Travel<30 Days: No Contact w/Intl Traveler<30Days: No Known Affected Area: No History of Present Illness HPI 22-year-old white female G 3 P2 PCS 36 weeks 6 days previous now presents with contractions and nausea and vomiting with those contractions, no bleeding or leakage, contractions seen or spaced out small, her heart rate tracing is not quite reactive at this time but will obviously watch that until it does become reactive. She sees Dr. Mckeon for care Weeks Gestation: 36 Para: 2 : 3 History Obstetric History Obstetric History 1 vaginal deliveries and 1 Past Surgical History Narrative Surgical Social History Alcohol Use: No Tobacco Use: No Substance Abuse: No Allergies-Medications (Allergen,Severity, Reaction): Coded Allergies: No Known Allergies (Unverified Adverse Reaction, Unknown, 08/30/17) Home Meds Active Scripts Promethazine Supp (Phenergan Supp) 25 Mg Supp, 25 MG RECTAL Q6H Y for NAUSEA OR VOMITING for 3 Days, #6 SUPP 0 Refills Prov:Jovany Albarran II, MD 12/21/17 Promethazine (Phenergan) 25 Mg Tablet, 25 MG PO Q6H Y for NAUSEA OR VOMITING for 7 Days, #28 TAB 1 Refill Prov:Jovany Albarran II, MD 12/21/17 Reported Medications Vit-Iron Carbonyl ( Plus Iron 29-1 mg) 1 Tab Tab, 1 TAB PO DAILY for Nutritional Supplement, #30 TAB 0 Refills 11/23/16 Review of Systems General / Constitutional: No: Fever, Weight Gain, Chills, Other Eyes: No: Diploplia, Blurred Vision, Visual changes, Pain, Photophobia HENT: No: Headaches, Vertigo, Lightheadedness Cardiovascular: No: Irregular Rhythm, Chest Pain or Discomfort, Palpitations, Tachycardia, Syncope, Varicosities, Edema, Cyanosis Respiratory: No: Cough, Short of Breath, Other Gastrointestinal: Nausea, Vomiting, Abdominal Pain, No: Diarrhea Genitourinary: No: Decreased Urinary Output, Oliguria Musculoskeletal: No: Limited ROM, Weakness, Cramping, Edema, Pain Skin: No Rash, No Itching, No Dryness, No Lumps, No Change in Pigmentation, No Change in Nails, No Alopecia, No Lesions Neurologic: No: Weakness, Dizziness, Syncope, Focal Abnormalities, Coordination Problem, Headache, Slurred Speech, Seizures Psychiatric: No: Depression, Suicidal Ideations, Homicidal Ideation Endocrine: No: Heat Intolerance, Cold Intolerance, Polydipsia, Polyuria, Other Physical Exam Narrative GENERAL: Well-nourished, well-developed patient. SKIN: Warm and dry. HEAD: Normocephalic and atraumatic. EYES: No scleral icterus. No injection or drainage. ENT: No nasal drainage noted. Mucous membranes pink. Airway patent. NECK: Supple, trachea midline. No JVD. CARDIOVASCULAR: Regular rate and rhythm without murmurs, gallops, or rubs. RESPIRATORY: Breath sounds equal bilaterally. No accessory muscle use. BREASTS: Bilateral exam showed no masses , no retractions, no nipple discharge. ABDOMEN/GI: Abdomen soft, non-tender, bowel sounds present, no rebound, no guarding Gravid to [36-] weeks size Fundal Height: [36-] GENITOURINARY: External Genitalia: intact and normal in appearance There is a lot of stool in the rectum pushing up into the vagina and may be that was displacing cervix anteriorly Cervix: [Anterior 12:00 almost up behind the symphysis-] Dilatation: [1-] Effacement: [-30] Station: [-3] Presentation: [vtx-] Membranes: [intact ] Uterine Contractions: [irreg-] FHT's: Category: [-1] Baseline: [-133] Reactive: [ NR] Variability: [mod-] Decels: [-occasional variable] EXTREMITIES: No cyanosis or edema. BACK: Nontender without obvious deformity. No CVA tenderness. NEUROLOGICAL: Awake and alert. Motor and sensory grossly within normal limits. Five out of 5 muscle strength in all muscle groups. Normal speech. Data Data Orders Orders Vital Signs (Adult) .ON ADMISSION (12/21/17:29) ^ Labor Status (12/21/17:) Urinalysis - C+S If Indicated (12/21/17:) ^ Non Stress Test (12/21/17:) Cbc No Diff, Includes Plts (12/21/17:) Basic Metabolic Panel (Bmp) (6/11/18 00:29) Ob/Psych Drug Screen, Urine (12/21/17 00:29) Dextrose 5%-Lactated Ring Inj (D5-Lr Inj (12/21/17 00:30) Prochlorperazine Inj (Compazine Inj) (12/21/17 00:45) Metoclopramide Inj (Reglan Inj) (12/21/17 00:45) Fentanyl Inj (Fentanyl Inj) (12/21/17 00:45) Labs CBC CMP within normal limits, urinalysis negative and no ketones seen MDM Interpretation(s) Patient is 22-year-old white female 36-37 weeks previous now with contractions nausea vomiting. She is not in labor at this time her cervix is 1/30/-3 with cervix is is directly anterior almost up behind the symphysis, her NST is not quite reactive at this time but will observe this and with her IV hydration and antiemetic therapy I believe will become quite reactive Plan Plan is IV fluid D5 LR with IV Compazine and Reglan with IV fentanyl, monitor fetus for increasing reactivity, and if patient is able to go home tonight we will discharge with p.o. Phenergan with Phenergan suppository backup Diagnosis Diagnosis: Primary Impression: Uterine contractions during Additional Impressions: Nausea and vomiting during 36 to 37 weeks gestation of Disposition: 01 DISCHARGE HOME Condition: Stable Scripts Promethazine Supp (Phenergan Supp) 25 Mg Supp 25 MG RECTAL Q6H Y for NAUSEA OR VOMITING for 3 Days, #6 SUPP 0 Refills Prov: Jovany Albarran II, MD 12/21/17 Promethazine (Phenergan) 25 Mg Tablet 25 MG PO Q6H Y for NAUSEA OR VOMITING for 7 Days, #28 TAB 1 Refill Prov: Jovany Albarran II, MD 12/21/17 Jovany Albarran II, MD Dec 21, 2017 00:42
[2017-12-21] MEDS ORDERED: METOCLOPRAMIDE HCL 10 MG/2 ML VIAL IV PUSH ONE (00:45)
[2017-12-21] MEDS ORDERED: PROCHLORPERAZINE INJ 10 MG/2 ML VIAL IV PUSH ONE (00:45)
[2017-12-21 00:51] LABS: HEMATOCRIT 29.2 % (35.0-46.0); HEMOGLOBIN 9.8 GM/DL (11.6-15.3); MEAN CELL VOLUME 78.1 FL (80.0-100.0); MEAN CORPUSCULAR HEMOGLOBIN 26.1 PG (27.0-34.0); MEAN CORPUSCULAR HGB CONC 33.4 % (32.0-36.0); MEAN PLATELET VOLUME 8.1 FL (7.0-11.0); PLATELET COUNT 257 TH/MM3 (150-450); RED BLOOD COUNT 3.74 MIL/MM3 (4.00-5.30); RED CELL DISTRIBUTION WIDTH 15.2 % (11.6-17.2); WHITE BLOOD COUNT 14.7 TH/MM3 (4.0-11.0)
[2017-12-21 00:53] LABS: BILIRUBIN, URINE NEG (NEG); BLOOD, URINE NEG (NEG); GLUCOSE,URINE NEG (NEG); KETONE, URINE NEG (NEG); MUCUS URINE FEW /lpf (OCC); NITRITE,URINE NEG (NEG); SQUAMOUS EPITHELIAL CELL URINE 6 /hpf (0-5); URINE COLOR YELLOW (YELLW/STRAW); URINE LEUKOCYTE ESTERASE SMALL (NEG)
[2017-12-21 01:08] LABS: CALCIUM 7.9 MG/DL (8.5-10.1); CREATININE 0.51 MG/DL (0.50-1.00)
== END 2017-12-21 01:30 | disposition home or self-care (01) ==
LOC: HOBED 23:54
DX: O60.03 Preterm labor without delivery, third trimester (principal); O21.2 Late vomiting of pregnancy; Z3A.37 37 weeks gestation of pregnancy; Z79.899 Other long term (current) drug therapy
CPT/HCPCS: 59025; 80048; 80307; 81001; 85027; 96365; 96375; 99284; G0481; J0780; J2765; J3010; J7121

== ENCOUNTER 2018-01-05 10:09 | Inpatient (IN) | payer MEDICAID ==
[2018-01-05] VITALS (8 sets, daily range): BP systolic 98–111; BP diastolic 54–70; PULSE 63–82; RESP 17–18; TEMP 97.5–98.2; O2SAT 99–100
[~2018-01-05] VITALS: Ht 162.6 cm; Wt 72.6 kg
[~2018-01-05 10:09] MED LIST changes: +PROM1SUP7 RECTAL; +PROM25TA10 PO
[2018-01-05] MEDS ORDERED: LACTATED RINGER'S 1000 ML INJ 1,000 ML IV ONE (11:25)
--- NOTE | 2018-01-05 11:36 | HHI.HP ---
HPI Chief Complaint scheduled repeat ; short inter- interval; last delivered 01/2017 Date Seen: Jan 05, 2018 Time Seen: 11:30 Travel History International Travel<30 Days: No Contact w/Intl Traveler<30Days: No Known Affected Area: No History of Present Illness HPI 22 yo here for scheduled repeat , last delivered via 2016, due to short interval between pregnancies d/w pt not candidate for . No complaints today other than mild pelvic pressure, 2/10. No LOF or VB. Good FM. Weeks Gestation: 39 Para: 2 : 3 Miscarriage: 0 : 0 History Past Medical History Narrative Medical denies significant; LSIL PAP Obstetric History Obstetric History G1 = FT 2013 G2 = FT CD 01/2017 ("blood pressure dropped") G3 = current Past Surgical History Narrative Surgical x 1 01/2017 Family History Family History: Negative Social History Alcohol Use: No Tobacco Use: No Substance Abuse: No Allergies-Medications (Allergen,Severity, Reaction): Coded Allergies: No Known Allergies (Verified Adverse Reaction, Unknown, 01/05/18) Home Meds Active Scripts Promethazine Supp (Phenergan Supp) 25 Mg Supp, 25 MG RECTAL Q6H Y for NAUSEA OR VOMITING for 3 Days, #6 SUPP 0 Refills Prov:Jovany Albarran II, MD 12/21/17 Promethazine (Phenergan) 25 Mg Tablet, 25 MG PO Q6H Y for NAUSEA OR VOMITING for 7 Days, #28 TAB 1 Refill Prov:Jovany Albarran II, MD 12/21/17 Reported Medications Vit-Iron Carbonyl ( Plus Iron 29-1 mg) 1 Tab Tab, 1 TAB PO DAILY for Nutritional Supplement, #30 TAB 0 Refills 11/23/16 Review of Systems General / Constitutional: Weight Gain, No: Fever, Chills, Other Eyes: No: Diploplia, Blurred Vision, Visual changes, Pain, Photophobia HENT: No: Headaches, Vertigo, Lightheadedness Cardiovascular: No: Irregular Rhythm, Chest Pain or Discomfort, Palpitations, Tachycardia, Syncope, Varicosities, Edema, Cyanosis Respiratory: No: Cough, Short of Breath, Other Gastrointestinal: No: Nausea, Vomiting, Diarrhea Genitourinary: Pelvic Pain (pressure), No: Decreased Urinary Output, Oliguria Musculoskeletal: No: Limited ROM, Weakness, Cramping, Edema, Pain Skin: No Rash, No Itching, No Dryness, No Lumps, No Change in Pigmentation, No Change in Nails, No Alopecia, No Lesions Neurologic: No: Weakness, Dizziness, Syncope, Focal Abnormalities, Coordination Problem, Headache, Slurred Speech, Seizures Psychiatric: No: Depression, Suicidal Ideations, Homicidal Ideation Endocrine: No: Heat Intolerance, Cold Intolerance, Polydipsia, Polyuria, Other Physical Exam Narrative GENERAL: Well-nourished, well-developed patient. SKIN: Warm and dry. HEAD: Normocephalic and atraumatic. EYES: No scleral icterus. No injection or drainage. ENT: No nasal drainage noted. Mucous membranes pink. Airway patent. NECK: Supple, trachea midline. No JVD. CARDIOVASCULAR: Regular rate and rhythm without murmurs, gallops, or rubs. RESPIRATORY: Breath sounds equal bilaterally. No accessory muscle use. BREASTS: deferred. ABDOMEN/GI: Abdomen soft, non-tender, bowel sounds present, no rebound, no guarding Gravid to [39] weeks size Fundal Height: [41] GENITOURINARY: External Genitalia: deferred FHT's: Category:I EXTREMITIES: No cyanosis or edema. BACK: Nontender without obvious deformity. No CVA tenderness. NEUROLOGICAL: Awake and alert. Motor and sensory grossly within normal limits. Five out of 5 muscle strength in all muscle groups. Normal speech. Caprini VTE Risk Assessment Caprini VTE Risk Assessment: No/Low Risk (score <= 1) VTE Pharm Contraindication: Epidural catheter Caprini Risk Assessment Model Point Value = 1 Point Value = 2 Point Value = 3 Point Value = 5 Age 41-60 Minor surgery BMI > 25 kg/m2 Swollen legs Varicose veins or History of unexplained or recurrent spontaneous Oral contraceptives or hormone replacement Sepsis (< 1 month) Serious lung disease, including pneumonia (< 1 month) Abnormal pulmonary function Acute myocardial infarction Congestive heart failure (< 1 month) History of inflammatory bowel disease Medical patient at bed rest Age 61-74 Arthroscopic surgery Major open surgery (> 45 min) Laparoscopic surgery (> 45 min) Malignancy Confined to bed (> 72 hours) Immobilizing plaster cast Central venous access Age >= 75 History of VTE Family history of VTE Factor V Leiden Prothrombin [id number] Lupus anticoagulant Anticardiolipin antibodies Elevated serum homocysteine Heparin-induced thrombocytopenia Other congenital or acquired thrombophilia Stroke (< 1 month) Elective arthroplasty Hip, pelvis, or leg fracture Acute spinal cord injury (< 1 month) Prophylaxis Regimen Total Risk Factor Score Risk Level Prophylaxis Regimen 0-1 Low Early ambulation 2 Moderate Order ONE of the following: *Sequential Compression Device (SCD) *Heparin 5000 units SQ BID 3-4 Higher Order ONE of the following medications: *Heparin 5000 units SQ TID *Enoxaparin/Lovenox 40 mg SQ daily (WT < 150 kg, CrCl > 30 mL/min) *Enoxaparin/Lovenox 30 mg SQ daily (WT < 150 kg, CrCl > 10-29 mL/min) *Enoxaparin/Lovenox 30 mg SQ BID (WT < 150 kg, CrCl > 30 mL/min) AND/OR *Sequential Compression Device (SCD) 5 or more Highest Order ONE of the following medications: *Heparin 5000 units SQ TID (Preferred with Epidurals) *Enoxaparin/Lovenox 40 mg SQ daily (WT < 150 kg, CrCl > 30 mL/min) *Enoxaparin/Lovenox 30 mg SQ daily (WT < 150 kg, CrCl > 10-29 mL/min) *Enoxaparin/Lovenox 30 mg SQ BID (WT < 150 kg, CrCl > 30 mL/min) AND *Sequential Compression Device (SCD) Data Data Vital Signs Reviewed: Yes Orders Orders Admit To Inpatient (01/05/18 ) Code Status (01/05/18 11:25) Vital Signs (Adult) .ON ADMISSION (01/05/18 11:25) Activity Oob Ad Esther (01/05/18 11:25) Heart (01/05/18 11:25) Urinary Catheter Management RAUL.Q8H (01/05/18 11:25) ^ Preps (01/05/18 11:25) Scd / Mark / Foot Pump RAUL.QSHIFT (01/05/18 11:25) ^ Ultrasound For Locatio (01/05/18 11:25) Diet Npo (01/05/18 Lunch) Lactated Ringer's 1000 Ml Inj (Lr 1000 M (01/05/18 11:25) Lactated Ringer's 1000 Ml Inj (Lr 1000 M (01/05/18 11:55) Cefazolin 2 Gm Premix (Ancef 2 Gm Premix (01/05/18 12:30) Citric Acid-Sodium Citrate Liq (Bicitra (01/05/18 13:00) Type And Screen (01/05/18 11:25) Complete Blood Count With Diff (01/05/18 11:25) Urinalysis - C+S If Indicated (01/05/18 11:25) Drug Screen, Random Urine (01/05/18 11:25) Inpatient Certification (01/05/18 ) Specimen To Be Collected PRN (01/05/18 11:25) Specimen To Be Collected PRN (01/05/18 11:25) Group B Strep: Negative Assessment/Plan Problem List: (1) History of delivery, currently ICD Codes: O34.219 - Maternal care for unspecified type scar from previous delivery Status: Chronic (2) Short interval between pregnancies affecting in third trimester, antepartum ICD Codes: O09.893 - Supervision of other high risk pregnancies, third trimester Status: Chronic Assessment and Plan 22 yo with EDC 01/12/18 admit for scheduled repeat due to hx of less than 1 year ago 1) repeat CD: consents signed, pt declines tubal ligation 2) GBS neg 3) status: vertex, male, Cat I tracing Discharge Planning routine 2-3d PP Vilma Dela Cruz MD Jan 05, 2018 11:36
[2018-01-05 11:39] LABS: BACTERIA, URINE RARE /hpf; BILIRUBIN, URINE NEG (NEG); BLOOD, URINE NEG (NEG); GLUCOSE,URINE NEG (NEG); KETONE, URINE NEG (NEG); NITRITE,URINE NEG (NEG); SQUAMOUS EPITHELIAL CELL URINE 66 /hpf (0-5); URINE LEUKOCYTE ESTERASE LARGE (NEG)
[2018-01-05 11:41] LABS: URINE COLOR YELLOW (YELLW/STRAW)
[2018-01-05 11:52] LABS: AUTOMATED NEUTROPHIL # 10.5 TH/MM3 (1.8-7.7); BASOPHIL % 0.4 % (0.0-2.0); EOSINOPHIL # 0.1 TH/MM3 (0-0.4); EOSINOPHIL % 0.9 % (0.0-4.0); HEMATOCRIT 29.9 % (35.0-46.0); HEMOGLOBIN 9.7 GM/DL (11.6-15.3); LYMPH % 14.5 % (9.0-44.0); LYMPHOCYTE # 1.9 TH/MM3 (1.0-4.8); MEAN CELL VOLUME 76.6 FL (80.0-100.0); MEAN CORPUSCULAR HEMOGLOBIN 24.8 PG (27.0-34.0); MEAN CORPUSCULAR HGB CONC 32.4 % (32.0-36.0); MEAN PLATELET VOLUME 7.8 FL (7.0-11.0); MONO % 5.9 % (0.0-8.0); MONOCYTE # 0.8 TH/MM3 (0-0.9); NEUT % 78.3 % (16.0-70.0); PLATELET COUNT 290 TH/MM3 (150-450); RED BLOOD COUNT 3.91 MIL/MM3 (4.00-5.30); WHITE BLOOD COUNT 13.4 TH/MM3 (4.0-11.0)
[2018-01-05] MEDS ORDERED: LACTATED RINGER'S 1000 ML INJ 1,000 ML IV SCH ×2 (11:55→18:37)
[2018-01-05] MEDS ORDERED: ACETAMINOPHEN 1000 MG/100 ML 100 ML IV ONE ×2 (12:23→13:45)
[2018-01-05] MEDS ORDERED: MORPHINE SULFATE PF 5 MG/10 ML VIAL ONE (12:23)
[2018-01-05] MEDS ORDERED: ceFAZolin 2 GM PREMIX 50 ML IV SCH (12:30)
[2018-01-05] MEDS ORDERED: CITRIC ACID-SODIUM CITRATE LIQ 30 ML UDC PO SCH (13:00)
--- NOTE | 2018-01-05 13:37 | PD.OB.DELI ---
Procedure Note Section Procedure Pre Op Diagnosis: (1) Short interval between pregnancies affecting in third trimester, antepartum (2) History of delivery, currently Post Op Diagnosis: (1) S/P repeat low transverse (2) History of delivery, currently (3) Short interval between pregnancies affecting in third trimester, antepartum Performed by Vilma Dela Cruz Procedure: Repeat Low Transverse Sec Indication for delivery: Desired elective repeat Previous condition: Other (short inter- interval, last 11 months prior) Informed consent obtained: For anesthesia, For procedure Confirmed correct: Patient, Procedure, Site, Time-out taken Anesthesia: Spinal Medication prior to procedure: As documented in eMAR Monitoring during procedure: Blood pressure monitoring, personnel monitor, Pulse oximetry Urinary catheter: Inserted using sterile technique, To dependent drainage, ml urine output (300) Sterile preparation: With 10% povidone iodine (Betadine), With drapes to expose affected area Position: Supine with wedge to right side Operative Features Skin Incision: Pfannenstiel Uterine Incision: Low transverse w/knife / scissors (with low vertical extension) Membranes Ruptured: Artificially, Amount of liquid (copious), Appearance of fluid (clear) Presentation: Other (vertex transitioned quickly to transverse upon rupture of amniotic sac; was brought back into vertex, vacuum-assisted delivery) Delivery date: Jan 05, 2018 Delivery time: 13:03 Delivery of : Assisted (vacuum-assisted) Infant: Male, Single One Minute : 8 Five Minute : 9 Weight: 8#5oz Status of : Viable, Cord blood, Umbilical cord (nuchal x 3, reduced), Nursery present Placenta delivered: Intact Medications: Antibiotics (ancef 2g IV preop) Estimated blood loss: 500 mL Procedure tolerated: Well Maternal Condition: Stable Condition: Stable Procedure in detail see dictated op note for full details Vilma Dela Cruz MD Jan 05, 2018 13:37
[2018-01-05] MEDS ORDERED: SODIUM CHLORIDE 0.9% FLUSH 10 ML FLUSH IV FLUSH SCH (13:45)
[2018-01-05] MEDS ORDERED: SODIUM CHLORIDE 0.9% FLUSH 10 ML FLUSH IV FLUSH PRN (13:45)
[2018-01-05] MEDS ORDERED: ACETAMINOPHEN 325 MG TAB PO PRN (13:45)
[2018-01-05] MEDS ORDERED: oxyCODONE/ACETAMINOPHEN 5 MG/325 MG TAB PO PRN (13:45)
[2018-01-05] MEDS ORDERED: ONDANSETRON HCL 4 MG/2 ML VIAL IV PUSH PRN (13:45)
[2018-01-05] MEDS ORDERED: SIMETHICONE 80 MG CHEWABLE TAB PO PRN (13:45)
[2018-01-05] MEDS ORDERED: OXYTOCIN 30 UNITS-500ML PREMIX 500 ML IV ONE (13:45)
[2018-01-05] MEDS ORDERED: ONDANSETRON HCL 4 MG/2 ML VIAL ONE (14:06)
--- NOTE | 2018-01-05 14:11 | MP ---
cc: Vilma Dela Cruz MD DATE OF OPERATION: PREOPERATIVE DIAGNOSES: 1. Frederick intrauterine at 39 weeks. 2. Short interpregnancy interval, last delivered by less than 1 year ago. 3. Scheduled repeat . POSTOPERATIVE DIAGNOSES: 1. Frederick intrauterine at 39 weeks. 2. Short interpregnancy interval, last delivered by less than 1 year ago. 3. Scheduled repeat . 4. Postoperative day number 0. INDICATIONS: Rosario Anderson is a 22-year-old 3, now para 3-0-0-3, who has a history of a for distress in 01/2017. She became quickly thereafter and was seen in our office during her . Due to short interpregnancy interval, with history of , she was counseled against the option of vaginal after and was scheduled for repeat elective at term. PROCEDURE PERFORMED: Vacuum-assisted repeat low transverse delivery with low vertical extension. SURGEON: Vilma Dela Cruz MD TYPE OF ANESTHESIA: Spinal. ESTIMATED BLOOD LOSS: 500 mL IV FLUID REPLACEMENT: 2200 mL URINE OUTPUT: 300 mL of clear urine draining in the Arnold bag at the end of the procedure. COUNTS: Sponge, lap, instrument and needle count correct x2 at the conclusion of the procedure. PROPHYLAXIS: Ancef 2 grams IV was given preoperatively. SCDs were on and functioning throughout the entire case. COMPLICATIONS: On entry into the uterine cavity, there was a large gush of copious clear amniotic fluid and quickly turned from vertex to transverse back down. There was some difficulty with maneuvering to bring back into the vertex position and head was larger than expected, so a small extension of the uterine incision to low vertical using bandage scissors was used for successful delivery. There was also a nuchal cord x3 that was reduced after delivery of head. A vacuum was used for assistance due to difficulty with expulsion of head, despite persistent maneuvers. FINDINGS: A vigorous viable male weighing 8 pounds 5 ounces, Apgars of 8 and 9. Nuchal cord wrapped 3 times. This was reduced after delivery of head. Clear copious amniotic fluid. Normal appearing uterus, bilateral ovaries and fallopian tubes. There was some thick scar tissue in the rectus muscles and peritoneum. There was some difficulty with entry into the peritoneal cavity, but no adhesions of the uterus once within the peritoneal cavity. DESCRIPTION OF PROCEDURE: After reviewing the informed consent, the patient was taken to the operating suite, where a timeout was performed to identify the patient, planned procedure and any known allergies to drugs or drug products. The patient was placed sitting up on the exam table and spinal anesthesia was administered without difficulty and found to be adequate. The patient was then laid in dorsal supine position with a bump under her right side. Arnold catheter was placed using sterile technique. Attempt was made to find heart tones. There had been reactive NST in the labor room prior to the patient being taken to the operating room, but despite being able to palpate movement through the anterior abdominal wall, heart tones were not able to be found and maternal pulse was quite low in the 50s. Due to inability to find heart tones or confirm any heart tone greater than 70, Betadine was splashed on maternal abdomen, NICU was called and an emergent type was then performed. Drapes were placed. Pfannenstiel type skin incision was made with a scalpel and brought down through the underlying layer of fascia. This was opened bluntly. There was some scarring in the midline of the rectus muscles. Hemostats were used to elevate this and peritoneal cavity was entered sharply with Richardson scissors. This incision was extended superior and inferiorly bluntly and then additionally with a Bovie cautery to allow better visualization and room for delivery. Bladder blade was placed. A bladder flap was not made. The scalpel was used to make a low transverse uterine incision. There was immediate gush of copious clear amniotic fluid, and attempt to cradle the infant's head was made, but there was a quick movement from the and turned to transverse presentation with occult cord prolapse noted. The cord was reduced, but it was difficult to maneuver into vertex positioning, eventually was accomplished, but head was large. Bandage scissors were used to extend the hysterotomy in a low vertical fashion and vacuum was used to successfully deliver the head. At that point, a nuchal cord x3 was encountered. This was reduced prior to delivery of the infant's body, which readily delivered with gentle fundal pressure. The was immediately crying and stimulated upon delivery. Nose and mouth were suctioned with bulb suction. Delayed cord clamping of 45 seconds was then performed. Cord was then doubly clamped and cut and the infant was handed off to the waiting nursery and NICU staff. A cord segment and cord gas was taken due to the unexpected difficult delivery. Placenta was then delivered spontaneously with gentle cord traction and fundal massage. Uterus was exteriorized, cleared of all clots and debris with sterile moist lap sponges and hysterotomy was able to be repaired in a double-layer, first in a running locked layer then an imbricating layer. It was a very small low vertical extension, which was able to be incorporated into the low transverse hysterotomy. Irrigation with suction of the posterior cul-de-sac was performed. Uterus was returned to the abdomen. Additional irrigation with suction was performed. A layer of Interceed was placed over the repaired hysterotomy to act as an adhesion barrier. The peritoneum was reapproximated with 2-0 chromic in a running fashion. The fascia was closed in a running layer with #1 Vicryl. Subcutaneous tissue was irrigated copiously. The patient's prior scar was a rolled keloid type scar. This was excised with a scalpel. Additional irrigation with suction was performed and skin was then cleaned and dried and closed with chintan. A pressure type dressing was placed. The procedure concluded at this point. The patient tolerated the procedure well. DISPOSITION: The patient's estimated length of stay is 2-3 postoperative days. status is nursery. MD MER Fuentes/LORENZA , 01:34 PM , 02:11 PM ESTHELA
[2018-01-05] MEDS ORDERED: PROMETHAZINE INJ 25 MG/ML VIAL IM ONE (15:15)
[2018-01-05] MEDS ORDERED: EPIDURAL-NO SYSTEMIC NARCOTICS PRN (15:45)
[2018-01-05] MEDS ORDERED: EPIDURAL-DO NOT ADMINISTER ANTICOAGULANTS PRN (15:45)
[2018-01-05] MEDS ORDERED: EPIDURAL-DIPHENHYDRAMINE HCL 50 MG CAP PO PRN (15:45)
[2018-01-05] MEDS ORDERED: EPIDURAL-DIPHENHYDRAMINE HCL 50 MG/ML VIAL IV PUSH PRN (15:45)
[2018-01-05] MEDS ORDERED: EPIDURAL-NALOXONE HCL 0.4 MG/ML AMP IV PUSH PRN (15:45)
[2018-01-05] MEDS ORDERED: OXYTOCIN 30 UNITS-500ML PREMIX 500 ML IV PRN (18:45)
[2018-01-05] MEDS ORDERED: ZOLPIDEM TARTRATE 5 MG TAB PO PRN (21:00)
[2018-01-06 00:19] VITALS: BP 95/62; PULSE 70; RESP 17; TEMP 97.9
[2018-01-06] MEDS: oxyCODONE/ACETAMINOPHEN 5 MG/325 MG TAB PO PRN ×4 (03:00→19:04)
[2018-01-06] MEDS: IBUPROFEN 600 MG TAB PO PRN ×3 (03:00→14:16)
[2018-01-06 03:56] VITALS: BP 88/50; PULSE 61; RESP 17; TEMP 98.7
[2018-01-06 06:06] LABS: AUTOMATED NEUTROPHIL # 15.6 TH/MM3 (1.8-7.7); BASOPHIL % 0.2 % (0.0-2.0); EOSINOPHIL % 0.2 % (0.0-4.0); HEMATOCRIT 28.8 % (35.0-46.0); HEMOGLOBIN 9.3 GM/DL (11.6-15.3); LYMPH % 11.3 % (9.0-44.0); LYMPHOCYTE # 2.2 TH/MM3 (1.0-4.8); MEAN CELL VOLUME 77.5 FL (80.0-100.0); MEAN CORPUSCULAR HEMOGLOBIN 24.9 PG (27.0-34.0); MEAN CORPUSCULAR HGB CONC 32.2 % (32.0-36.0); MEAN PLATELET VOLUME 7.9 FL (7.0-11.0); MONO % 7.2 % (0.0-8.0); MONOCYTE # 1.4 TH/MM3 (0-0.9); NEUT % 81.1 % (16.0-70.0); PLATELET COUNT 280 TH/MM3 (150-450); RED BLOOD COUNT 3.72 MIL/MM3 (4.00-5.30); RED CELL DISTRIBUTION WIDTH 15.8 % (11.6-17.2); WHITE BLOOD COUNT 19.2 TH/MM3 (4.0-11.0)
[2018-01-06] MEDS: DOCUSATE SODIUM 50 MG/SENNA 8.6 MG TAB PO PRN (08:38)
--- NOTE | 2018-01-06 11:31 | HHI.OB ---
Subjective Post Operative Day: 1 Remarks POD#1; Doing well Objective Vitals/I&O Vital Signs Date Time Temp Pulse Resp B/P (MAP) Pulse Ox O2 Delivery O2 Flow Rate FiO2 01/06/18 03:56 98.7 61 17 88/50 (63) 01/06/18 00:19 97.9 70 17 95/62 (73) 01/05/18 22:28 98.2 67 17 100/58 (72) 01/05/18 15:15 97.5 18 01/05/18 15:15 64 105/70 (82) 01/05/18 14:40 75 18 98/55 (69) 99 01/05/18 14:37 97.7 01/05/18 14:25 63 18 99 01/05/18 14:25 98/54 (69) 01/05/18 14:10 82 18 107/54 (71) 99 01/05/18 13:45 99 01/05/18 13:45 82 18 111/55 (73) 01/05/18 13:30 81 18 110/59 (76) 100 01/05/18 13:30 97.8 Result Diagram: 01/06/18 0536 Objective Remarks GENERAL: Well-nourished, well-developed patient. CARDIOVASCULAR: Regular rate and rhythm without murmurs, gallops, or rubs. RESPIRATORY: Breath sounds equal bilaterally. No accessory muscle use. ABDOMEN/GI: Abdomen soft, non-tender, bowel sounds present. Incision: Clean, dry and intact. Fundus: Firm, non-tender at umbilicus. GENITOURINARY: Light to moderate bleeding. EXTREMITIES: No cyanosis or edema, non-tender, without signs of DVT. Medications and IVs Current Medications Medications (Trade) Dose Ordered Sig/Ger Route Start Time Stop Time Status Last Admin (Bicitra Liq) 30 ml SUBSYSTEMS ENGINEER PO 01/05/18 13:00 01/09/18 12:59 01/05/18 12:17 Lactated Ringer's 1,000 ml @ 100 mls/hr Q10H IV 01/05/18 18:37 01/06/18 14:36 Oxytocin 500 ml @ 100 mls/hr UNSCH X1 PRN IV 01/05/18 18:45 01/06/18 18:44 (NS Flush) 2 ml BID IV FLUSH 01/05/18 13:45 (NS Flush) 2 ml UNSCH PRN IV FLUSH 01/05/18 13:45 (Mylicon Chew) 80 mg QID PRN PO 01/05/18 13:45 01/06/18 08:38 (Tylenol) 650 mg Q6H PRN PO 01/05/18 13:45 (Motrin) 600 mg Q6H PRN PO 01/05/18 13:45 01/06/18 08:39 (Percocet 5-325 Mg) 1 tab Q4H PRN PO 01/05/18 13:45 (Percocet 5-325 Mg) 2 tab Q4H PRN PO 01/05/18 13:45 01/06/18 08:42 (Lesia-Colace) 2 tab Q12H PRN PO 01/05/18 13:45 01/06/18 08:38 (Ambien) 5 mg HS PRN PO 01/05/18 21:00 (M-M-R Ii Inj) 0.5 ml ONCE ONCE SQ 01/06/18 16:00 01/06/18 16:01 (Boostrix Inj) 0.5 ml ONCE ONCE IM 01/06/18 16:00 01/06/18 16:01 (Zofran Inj) 4 mg Q6H PRN IV PUSH 01/05/18 13:45 01/05/18 14:07 ([facility] [place] Nursing Information) NO SYSTEMIC NARCOTICS TO BE GIVEN FO... UNSCH PRN .XX 01/05/18 15:45 01/06/18 15:44 (Narcan Inj) 0.4 mg UNSCH PRN IV PUSH 01/05/18 15:45 01/06/18 15:44 (Benadryl Inj) 25 mg Q6H PRN IV PUSH 01/05/18 15:45 01/06/18 15:44 (Benadryl) 50 mg Q6H PRN PO 01/05/18 15:45 01/06/18 15:44 ([facility] [place] Nursing Information) ALL NURSING DEPARTMENTS UNSCH PRN .XX 01/05/18 15:45 01/06/18 15:44 Assessment/Plan Problem List: (1) History of delivery, currently ICD Codes: O34.219 - Maternal care for unspecified type scar from previous delivery Status: Chronic (2) Short interval between pregnancies affecting in third trimester, antepartum ICD Codes: O09.893 - Supervision of other high risk pregnancies, third trimester Status: Chronic Assessment and Plan 22 yo with EDC 01/12/18 admit for scheduled repeat due to hx of less than 1 year ago 1) repeat CD: consents signed, pt declines tubal ligation 2) GBS neg 3) status: vertex, male, Cat I tracing 01/06/2018 POD#1; Stable,doing well Discharge Planning routine 2-3d PP Pablo Jackson MD Jan 06, 2018 11:31
--- NOTE | 2018-01-06 14:23 | HHI.DCPOC ---
Discharge Care Plan Diagnosis: (1) Short interval between pregnancies affecting in third trimester, antepartum (2) S/P repeat low transverse Your Health Problems Are: delivery Report Symptoms to Your Doctor -Temperature above 100.5 degrees -Redness, of incision or excessive or foul smelling drainage -Unusual pain or calf pain -Increased vaginal bleeding -Painful or difficulty urinating -Feelings of extreme sadness or anxiety after 2 weeks Goals to Promote Your Health * To prevent worsening of your condition and complications * To maintain your health at the optimal level Directions to Meet Your Goals Take your medications as prescribed Follow your dietary instruction Follow activity as directed Ensure plenty of rest for recovery Drink fluids for hydration Keep your appointments as scheduled Take your immunizations and boosters as scheduled If your symptoms worsen call your PCP, if no PCP go to Urgent Care Center or Emergency Room Smoking is Dangerous to Your Health. Avoid second hand smoke Call the 24-hour crisis hotline for domestic abuse at Rohan Mckeon MD Jan 06, 2018 14:23
--- NOTE | 2018-01-06 14:26 | HHI.PR ---
SUPERVISOR EVAPORATOR Note Note Looked patient up in the PDMP, reviewed report. Rohan Mckeon MD Jan 06, 2018 14:26
[2018-01-06] MEDS ORDERED: MEASLES, MUMPS, RUBELLA VACCINE 0.5 ML VIAL SQ ONE (16:00)
[2018-01-06] MEDS ORDERED: DIPHTH/TETANUS/ACEL PERTUSSIS (BOOSTER) 0.5 ML VIAL/PFS IM ONE (16:00)
[2018-01-06 20:00] VITALS: BP 107/64; PULSE 78; RESP 18; TEMP 98.4
[2018-01-07] MEDS: oxyCODONE/ACETAMINOPHEN 5 MG/325 MG TAB PO PRN ×4 (01:20→13:21)
[2018-01-07] MEDS: IBUPROFEN 600 MG TAB PO PRN ×2 (01:20→09:27)
[2018-01-07] MEDS: DOCUSATE SODIUM 50 MG/SENNA 8.6 MG TAB PO PRN (05:52)
[2018-01-07] MEDS ORDERED: PERC5TAB12 PO (09:27)
[2018-01-07] MEDS ORDERED: IBUP-232 PO (09:27)
--- NOTE | 2018-01-07 09:31 | HHI.OB ---
Subjective Post Operative Day: 2 Remarks Doing well, pain controlled, vaginal bleeding less than menses, ambulating, voiding spontaneously pain is controlled. Objective Vitals/I&O Vital Signs Date Time Temp Pulse Resp B/P (MAP) Pulse Ox O2 Delivery O2 Flow Rate FiO2 01/06/18 20:00 98.4 78 18 01/06/18 20:00 107/64 (78) Result Diagram: 01/06/18 0536 Objective Remarks GENERAL: Well-nourished, well-developed patient. CARDIOVASCULAR: Regular rate and rhythm without murmurs, gallops, or rubs. RESPIRATORY: Breath sounds equal bilaterally. No accessory muscle use. ABDOMEN/GI: Abdomen soft, non-tender, bowel sounds present. Incision: Clean, dry and intact. With chintan Fundus: Firm, non-tender at umbilicus. GENITOURINARY: Light to moderate bleeding. EXTREMITIES: No cyanosis or edema, non-tender, without signs of DVT. Medications and IVs Current Medications Medications (Trade) Dose Ordered Sig/Ger Route Start Time Stop Time Status Last Admin (Bicitra Liq) 30 ml BEHAVIORAL PSYCHOLOGIST PO 01/05/18 13:00 01/09/18 12:59 01/05/18 12:17 (NS Flush) 2 ml BID IV FLUSH 01/05/18 13:45 (NS Flush) 2 ml UNSCH PRN IV FLUSH 01/05/18 13:45 (Mylicon Chew) 80 mg QID PRN PO 01/05/18 13:45 01/06/18 08:38 (Tylenol) 650 mg Q6H PRN PO 01/05/18 13:45 (Motrin) 600 mg Q6H PRN PO 01/05/18 13:45 01/07/18 01:20 (Percocet 5-325 Mg) 1 tab Q4H PRN PO 01/05/18 13:45 (Percocet 5-325 Mg) 2 tab Q4H PRN PO 01/05/18 13:45 01/07/18 05:52 (Lesia-Colace) 2 tab Q12H PRN PO 01/05/18 13:45 01/07/18 05:52 (Ambien) 5 mg HS PRN PO 01/05/18 21:00 (Zofran Inj) 4 mg Q6H PRN IV PUSH 01/05/18 13:45 01/05/18 14:07 Assessment/Plan Problem List: (1) History of delivery, currently ICD Codes: O34.219 - Maternal care for unspecified type scar from previous delivery Status: Chronic (2) Short interval between pregnancies affecting in third trimester, antepartum ICD Codes: O09.893 - Supervision of other high risk pregnancies, third trimester Status: Chronic Assessment and Plan 22-year-old 003 status post scheduled repeat low transverse with vertical extension and vacuum delivery at 39 weeks 1. Postoperative day #2: Afebrile, vital signs stable, meeting milestones, discharge home today. Discussed postoperative and precautions, expectations and follow-up. Remove chintan today and replaced with Steri- Strips. -Male, does not desire circumcision. Rohan Mckeon MD Jan 07, 2018 09:31
== END 2018-01-07 13:54 | disposition home or self-care (01) | DRG 766 ==
LOC: H2EB 10:09 → H1EA 15:09
PROVIDERS: ADMIT Obstetrics & Gynecology; ATTEND Obstetrics & Gynecology
PROC: 10D00Z1 Extraction of Products of Conception, Low, Open Approach (ICD-10-PCS; principal; 2018-01-05)
DX: O34.211 Maternal care for low transverse scar from previous cesarean delivery (principal); O77.9 Labor and delivery complicated by fetal stress, unspecified; O69.81X0 Labor and delivery complicated by cord around neck, without compression, not applicable or unspecified; O75.89 Other specified complications of labor and delivery; Z37.0 Single live birth; Z3A.39 39 weeks gestation of pregnancy; Z23 Encounter for immunization
CPT/HCPCS: 59025; 80307; 81001; 82805; 85025; 86850; 86900; 86901; C1765; J0131; J0690; J2274; J2405; J2550; J2590; J7120